=== PATIENT | male | born 1985 | race Caucasian/White ===

== ENCOUNTER 2017-11-15 20:09 | Emergency (ER) | payer OTHER ==
[2017-11-15] MEDS ORDERED: Fluorescein Opthalmic Strip ONE (20:19)
[2017-11-15] MEDS ORDERED: Proparacaine 0.5% Opth 15 ML BOT ONE (20:19)
--- NOTE | 2017-11-15 21:43 | CT ---
CT ORBITS NONCONTRAST: INDICATIONS: Orbital pain. Clinical concern for right orbital foreign body. FINDINGS: There is a subtle, 1-2 mm radiolucent focus of the superior aspect of the right orbit, abutting the c ephalad margin of the right globe. Otherwise, no radiopaque foreign bodies are identified. Intraocu lar lenses are intact. No obvious disruption of either globe. No retrobulbar hematoma or mass effec t. No orbital wall fracture. Incidental note of paranasal sinus mucosal thickening. IMPRESSION: Punctate radiolucent focus of the superior aspect of the right orbit, abutting the cephalad aspect of the right globe. This could relate to a 1- 2 mm radiolucent foreign body or, alternatively, could r eflect a focus of air density. Given the patient's clinical symptoms, recommend an ophthalmology con sultation for more definitive assessment. POS: [facility]
== END 2017-11-15 23:04 | disposition home or self-care (01) ==
LOC: SCSER 20:09
DX: T15.01XA Foreign body in cornea, right eye, initial encounter (principal)
CPT/HCPCS: 65222; 70480